=== PATIENT | male | born 1990 | race African-American/Black ===

== ENCOUNTER 2017-07-31 12:31 | Emergency (ER) | payer SELFPAY ==
[2017-07-31 12:42] VITALS: BP 144/77; PULSE 63; TEMP 98.1; BMI 25.4
[2017-07-31] MEDS ORDERED: IBUPROFEN 600 MG TABLET (FP) PO ONE ×2 (13:36→13:38)
--- NOTE | 2017-07-31 13:40 | PDOC ---
History of Present Illness - General Chief Complaint: Injury Stated Complaint: LT TOE INJURY Time Seen by Provider: 07/31/17 12:50 History Source: Patient Exam Limitations: No Limitations - History of Present Illness Initial Comments: 07/31/17 13:36 26 yr male with pain to the left foot for one week denies injury. Past History - Past Medical History Allergies/Adverse Reactions: Allergies Allergy/AdvReac Type Severity Reaction Status Date / Time No Known Allergies Allergy Verified 07/31/17 12:37 Home Medications: Ambulatory Orders Naproxen [Naprosyn] 500 mg PO BID PRN #20 tablet 07/31/17 CVA: No COPD: No DVT: No - Surgical History Abdominal Surgery: Yes (LEFT INGUINAL HERNIA) - Immunization History Immunization Up to Date: Yes - Suicide/Smoking/Psychosocial Hx Smoking History: Never smoked Have you smoked in the past 12 months: No Information on smoking cessation initiated: No Hx Alcohol Use: No Drug/Substance Use Hx: No Substance Use Type: None Review of Systems - Review of Systems Able to Perform ROS?: Yes Is the patient limited French proficient: No Constitutional: No: Symptoms Reported HEENTM: No: Symptoms Reported Respiratory: No: Symptoms reported Cardiac (ROS): No: Symptoms Reported ABD/GI: No: Symptoms Reported : No: Symptoms Reported Musculoskeletal: Yes: Symptoms Reported Integumentary: No: Symptoms Reported *Physical Exam - Vital Signs Last Vital Signs Temp Pulse Resp BP Pulse Ox 98.1 F 63 15 144/77 100 07/31/17 12:37 07/31/17 12:37 07/31/17 12:37 07/31/17 12:37 07/31/17 12:37 - Physical Exam General Appearance: Yes: Nourished, Appropriately Dressed HEENT: positive: EOMI, KELE[place]I Neck: positive: Supple. negative: Tender Respiratory/Chest: positive: Lungs Clear, Normal Breath Sounds. negative: Chest Tender Cardiovascular: positive: Regular Rhythm, Regular Rate Musculoskeletal: positive: Normal Inspection, Other (left 4th and 5th toenails with peeling nails, in between the 4th and 5th digits is an area of moist white skin , no bonty tenderness, skin is intact to the plantar surface, ) Extremity: positive: Normal Capillary Refill, Normal Inspection, Normal Range of Motion. negative: Tender ED Treatment Course - RADIOLOGY Radiology Studies Ordered: Category Date Time Status FOOT-LEFT [RAD] Stat Radiology 07/31/17 12:50 Completed Medical Decision Making - Medical Decision Making 07/31/17 16:13 cc: left foot pain ,moist white skin in between the 4th and 5th toes no swelling no bony tenderness exam consistent with fungal infection xray done negative for fracture refer to battery installer *DC/Admit/Observation/Transfer Diagnosis at time of Disposition: Athlete's foot on left, Foot pain, left - Discharge Dispostion Disposition: HOME Condition at time of disposition: Good - Prescriptions Prescriptions: Naproxen [Naprosyn] 500 mg PO BID PRN #20 tablet PRN Reason: Pain - Referrals Referrals: Robert Matamoros MD [Staff Physician] - - Patient Instructions Additional Instructions: please follow up with the battery installer take naprosyn as directed for pain every 12hrs elevate the foot at the end of the day and apply ice for 20 mins every 2hrs get over the counter Lotrimin AF cream and apply as directed to the space between the 4th and 5th toe on the left foot keep dry - Post Discharge Activity Forms/Work/School Notes: Back to Work
== END 2017-07-31 13:43 | disposition home or self-care (01) ==
LOC: JERFT 12:31
DX: M79.672 Pain in left foot (principal); B35.3 Tinea pedis
CPT/HCPCS: 73630-TC-LT; 99281-25